=== PATIENT | male | born 1960 | race Caucasian/White ===

== ENCOUNTER 2017-04-29 14:01 | Emergency (ER) | payer MEDICAID, OTHER ==
[2017-04-29 14:23] VITALS: BP 148/77
[2017-04-29] MEDS ORDERED: Ketorolac 30 MG/ML SDV IM ONE (15:07)
[2017-04-29] MEDS ORDERED: predniSONE 20 MG Tab PO ONE (15:09)
[2017-04-29] MEDS ORDERED: Cyclobenzaprine 10 MG Tab PO ONE (15:24)
[2017-04-29 16:14] LABS: CHLORIDE,CL 104 mmol/L (98-107); SODIUM,NA 142 mmol/L (136-145)
[2017-04-29] MEDS ORDERED: Furosemide 40 MG Tab PO ONE (16:22)
--- NOTE | 2017-04-29 16:39 | EDM.PDOC ---
ED HPI GENERAL MEDICAL PROBLEM - General Chief Complaint: Headache Stated Complaint: neck and headache Time Seen by Provider: 04/29/17 14:25 Source of Information: Reports: Patient History Limitations: Reports: No Limitations - History of Present Illness INITIAL COMMENTS - FREE TEXT/NARRATIVE: Patient reports neck pain to the lower neck going up into the bottom of his head. This pain also goes down into the shoulder, and left arm. Denies chest pain. States neck pain is a 10/10. He states he took a friend's oxycodone today and that helped with the pain. He denies SOB, chest pain, abdominal pain , fever, diaphoresis, LOC. Does smoke 1 ppd. This has been going on for the last 2 days. Onset: Gradual Location: Reports: Neck Quality: Reports: Ache, Pressure Severity: Moderate Improves with: Reports: None Worsens with: Reports: Movement Associated Symptoms: Reports: No Other Symptoms Lower Head Pain Score (Numeric/FACES): 10 - Related Data Allergies Allergy/AdvReac Type Severity Reaction Status Date / Time codeine Allergy Nausea and Verified 04/29/17 14:25 Vomiting nickel Allergy Blisters Uncoded 10/02/14 10:44 Home Meds: Home Meds Albuterol [Proair HFA] 1 puff INH ASDIRECTED PRN 10/02/14 [History] Aspirin/Calcium Carbonate/Mag [Aspirin Buffered 325 mg Tab] 1 tab PO DAILY 10/02 [History] Bismuth Subsalicylate [Pepto-Bismol] 262 mg PO ASDIRECTED 10/02/14 [History] Lisinopril [Lisinopril] 1 tab PO DAILY 10/02/14 [History] Metoprolol Succinate [Toprol XL 50mg] 50 mg PO DAILY 10/02/14 [History] Mometasone/Formoterol [Dulera 200-5 MCG] 2 puff INH BID 10/02/14 [History] Nitroglycerin [Nitrostat] 1 tab SL ASDIRECTED PRN 10/02/14 [History] Ranitidine [Zantac] 150 mg PO DAILY 10/02/14 [History] atorvaSTATin [Lipitor] 20 mg PO BEDTIME 10/02/14 [History] traMADol HCl [Tramadol HCl] 1 tab PO 5XDAY PRN 10/02/14 [History] Past Medical History Cardiovascular History: Reports: Bypass, High Cholesterol, Hypertension - Past Surgical History Cardiovascular Surgical History: Reports: Valve Replacement Social & Family History - Tobacco Use Smoking Status *Q: Current Every Day Smoker Years of Tobacco use: 38 Packs/Tins Daily: 1 Second Hand Smoke Exposure: No - Alcohol Use Days Per Week of Alcohol Use: 0 - Recreational Drug Use Recreational Drug Use: No ED ROS GENERAL - Review of Systems Review Of Systems: See Below Constitutional: Reports: No Symptoms HEENT: Reports: No Symptoms Respiratory: Reports: No Symptoms Cardiovascular: Reports: No Symptoms Endocrine: Reports: No Symptoms GI/Abdominal: Reports: No Symptoms : Reports: No Symptoms Musculoskeletal: Reports: Neck Pain, Shoulder Pain, Arm Pain Skin: Reports: No Symptoms Neurological: Reports: Tingling (down left arm) Psychiatric: Reports: No Symptoms Hematologic/Lymphatic: Reports: No Symptoms Immunologic: Reports: No Symptoms - Physical Exam Exam: See Below Exam Limited By: No Limitations General Appearance: Alert, WD/WN, Moderate Distress Eye Exam: Bilateral Eye: EOMI, PERRL Ears: Normal TMs Throat/Mouth: Normal Inspection, Normal Lips, Normal Teeth, Normal Gums, Normal Oropharynx, Normal Voice, No Airway Compromise Head Exam: Atraumatic, Normocephalic Neck: Normal Inspection, Limited Range of Motion, Tender Lateral, Tender Midline Respiratory/Chest: No Respiratory Distress, Lungs Clear, Normal Breath Sounds, No Accessory Muscle Use, Chest Non-Tender Cardiovascular: Normal Peripheral Pulses, Regular Rate, Rhythm, No Edema, No Gallop, No JVD, No Murmur, No Rub GI/Abdominal: Normal Bowel Sounds, Soft, Non-Tender, No Organomegaly, No Distention, No Abnormal Bruit, No Mass Neuro Exam (Abbreviated): Alert, Oriented, CN II-XII Intact, Normal Cognition, Normal Gait, Normal Reflexes, No Motor/Sensory Deficits Back Exam: Normal Inspection, Full Range of Motion, NT Extremities: Normal Inspection, Normal Range of Motion, Non-Tender, No Pedal Edema, Normal Capillary Refill Psychiatric: Normal Affect, Normal Mood Skin Exam: Warm, Dry, Intact, Normal Color, No Rash Course - Vital Signs Last Recorded V/S: Last Vital Signs Temp 35.4 C 04/29/17 14:05 Pulse 72 04/29/17 14:05 Resp 18 04/29/17 14:05 BP 148/77 H 04/29/17 14:05 Pulse Ox 95 04/29/17 14:05 - Orders/Labs/Meds Orders: Active Orders 24 hr Category Date Time Status EKG Documentation Completion [RC] ROUTINE Care 04/29/17 15:07 Ordered Cervical Spine wo Cont [CT] Stat Exams 04/29/17 15:07 Ordered Chest 2V [CR] Stat Exams 04/29/17 15:07 Ordered Labs: Laboratory Tests 04/29/17 04/29/17 Range/Units 15:38 15:38 WBC 10.4 H (4.0-10.0) x10^3/uL RBC 5.27 (4.5-6.0) x10^6/uL Hgb 16.2 D (14.0-18.0) g/dL Hct 46.9 (40.0-52.0) % MCV 89.0 (78.0-93.0) fL MCH 30.7 (26.0-32.0) pg MCHC 34.5 (32.0-36.0) g/dL RDW Coeff of Rosalba 13.5 (10.0-15.0) % Plt Count 125 L (130-400) x10^3/uL Neut % (Auto) 69.8 (50.0-80.0) % Lymph % (Auto) 16.4 L (25.0-50.0) % [place] % (Auto) 10.6 (2.0-11.0) % Eos % (Auto) 3.0 (0.0-4.0) % Baso % (Auto) 0.2 (0.2-1.2) % Sodium 142 (136-145) mmol/L Potassium 3.7 (3.5-5.1) mmol/L Chloride 104 (98-107) mmol/L Carbon Dioxide 30 (21-32) mmol/L BUN 16 (7-18) mg/dL Creatinine 1.1 (0.70-1.30) mg/dL Est Cr Clr Drug Dosing TNP Estimated GFR (MDRD) > 60 Glucose 72 L (74-106) mg/dL Calcium 8.7 (8.5-10.1) mg/dL Corrected Calcium 8.78 (8.5-10.1) mg/dL Total Bilirubin 0.6 (0.2-1.0) mg/dL AST 27 (15-37) U/L ALT 48 (16-63) U/L Alkaline Phosphatase 99 (46-116) U/L Troponin I < 0.017 (<=0.056) ng/mL NT-Pro-B Natriuret Pep 574 H (<=125) pg/mL Total Protein 7.2 (6.4-8.2) g/dL Albumin 3.9 (3.4-5.0) g/dL Globulin 3.3 Albumin/Globulin Ratio 1.18 Meds: Medications Discontinued Medications Generic Name Dose Route Start Last Admin Trade Name Freq PRN Reason Stop Dose Admin Cyclobenzaprine HCl 10 mg 04/29/17 15:24 04/29/17 15:47 Flexeril PO 04/29/17 15:25 10 mg ONETIME ONE Administration Furosemide 40 mg 04/29/17 16:22 Lasix PO 04/29/17 16:23 ONETIME ONE Ketorolac Tromethamine 30 mg 04/29/17 15:07 04/29/17 15:32 Toradol IM 04/29/17 15:08 30 mg ONETIME ONE Administration Orphenadrine Citrate 60 mg 04/29/17 15:25 04/29/17 15:47 Norflex IM 04/29/17 15:26 60 mg ONETIME ONE Administration Prednisone 40 mg 04/30/17 15:09 Prednisone PO 04/30/17 15:10 ONETIME ONE Prednisone 40 mg 04/29/17 15:09 04/29/17 15:47 Prednisone PO 04/29/17 15:10 40 mg ONETIME ONE Administration - Re-Assessments/Exams Free Text/Narrative Re-Assessment/Exam: 04/29/17 16:40 Prescriptions given for medrol dose pack and flexeril. Departure - Departure Time of Disposition: 16:40 Disposition: Home, Self-Care 01 Condition: Good Clinical Impression: Neck pain, Headache - Discharge Information Instructions: Degenerative Disk Disease, Headache and Arthritis, Cervical Sprain, [id number] Referrals: PCP,Not In Area [Primary Care Provider] - Additional Instructions: Your labs, x-ray, CT scan, and ekg did not show an acute heart attack. Follow up with your regular provider for additional symptom management. You may use tylenol and ibuprofen for pain relief. Try alternating heat and ice, a topical analgesic like aspercreme, or lidocaine patches. Try to do some stretches as well. You may also want to try some chiropractic or massage therapy. Physical therapy may also be an option. Please call us with any questions or concerns. - Problem List & Annotations (1) Headache SNOMED Code(s): 13931727 Code(s): R51 - HEADACHE Status: Acute Priority: Low Current Visit: Yes Qualifiers: Headache type: unspecified Headache chronicity pattern: acute headache Intractability: not intractable Qualified Code(s): R51 - Headache (2) Neck pain SNOMED Code(s): 83476211 Code(s): M54.2 - CERVICALGIA Status: Acute Priority: Low Current Visit : Yes - Problem List Review Problem List Initiated/Reviewed/Updated: Yes - My Orders Last 24 Hours: My Active Orders 04/29/17 15:07 EKG Documentation Completion [RC] ROUTINE Cervical Spine wo Cont [CT] Stat Chest 2V [CR] Stat - Assessment/Plan Last 24 Hours: My Active Orders 04/29/17 15:07 EKG Documentation Completion [RC] ROUTINE Cervical Spine wo Cont [CT] Stat Chest 2V [CR] Stat Assessment:: neck pain headache Plan: Your labs, x-ray, CT scan, and ekg did not show an acute heart attack. Follow up with your regular provider for additional symptom management. You may use tylenol and ibuprofen for pain relief. Try alternating heat and ice, a topical analgesic like aspercreme, or lidocaine patches. Try to do some stretches as well. You may also want to try some chiropractic or massage therapy. Physical therapy may also be an option. Please call us with any questions or concerns.
[2017-04-30] MEDS ORDERED: predniSONE 20 MG Tab PO ONE (15:09)
== END 2017-04-29 16:49 | disposition home or self-care (01) ==
LOC: VM.ED 14:01
DX: M54.2 Cervicalgia (principal); R51 Headache; I10 Essential (primary) hypertension; E78.00 Pure hypercholesterolemia, unspecified; F17.210 Nicotine dependence, cigarettes, uncomplicated; Z88.5 Allergy status to narcotic agent; Z79.82 Long term (current) use of aspirin; Z79.899 Other long term (current) drug therapy
CPT/HCPCS: 36415; 71046; 72125; 80053; 83880; 84484; 85025; 96372; 99284; A9270; J1885; J2360

== ENCOUNTER 2018-01-21 03:05 | Emergency (ER) | payer MEDICAID ==
[2018-01-21] MEDS: Sodium Chloride 0.9% 1,000 ML IV ONE (03:45)
[2018-01-21] MEDS: Ondansetron 4 MG/2 ML SDV IVPUSH ONE (04:40)
[2018-01-21 04:43] LABS: CHLORIDE,CL 101 mmol/L (98-107); SODIUM,NA 136 mmol/L (136-145)
[2018-01-21 04:44] LABS: ANION GAP 13.9 mmol/L (10-20)
[2018-01-21] MEDS: HYDROmorphone 1 MG/ML Syringe IVPUSH ONE ×2 (04:44→06:55)
[2018-01-21] MEDS: Iopamidol 612 MG/ML 100 ML Bottle IVPUSH ONE (05:10)
--- NOTE | 2018-01-21 06:43 | EDM.PDOC ---
ED HPI GENERAL MEDICAL PROBLEM - General Chief Complaint: Flank Pain Stated Complaint: Right flank pain Time Seen by Provider: 01/21/18 03:33 Source of Information: Reports: Patient, EMS History Limitations: Reports: No Limitations - History of Present Illness INITIAL COMMENTS - FREE TEXT/NARRATIVE: Patient presents to emergency room this morning with complaints of right-sided flank pain. He states that this is been ongoing for the last couple days. He denies chest pain, shortness of breath, headache, loss of consciousness, blood in his urine or his stool is also denied. He is having regular bowel and bladder movements. He does state that the pain he is having is largely in the right side of his flank but does radiate into the right side of his abdomen. He is not having any face, jaw, neck or arm pain. Onset: Gradual Onset Date: 01/19/18 Duration: Getting Worse Location: Reports: Abdomen, Back Quality: Reports: Sharp Improves with: Reports: None Worsens with: Reports: None Treatments PICKER: Reports: IV/IO, Other (see below) Other Treatments PICKER: Dilaudid, Zofran Right flank Pain Score (Numeric/FACES): 7 - Related Data Allergies Allergy/AdvReac Type Severity Reaction Status Date / Time nickel Allergy Blisters Verified 01/21/18 03:26 codeine AdvReac Nausea and Verified 01/21/18 03:26 Vomiting Home Meds: Home Meds Albuterol [Proair HFA] 1 puff INH ASDIRECTED PRN 10/02/14 [History] Aspirin/Calcium Carbonate/Mag [Aspirin Buffered 325 mg Tab] 1 tab PO DAILY 10/02 [History] Bismuth Subsalicylate [Pepto-Bismol] 262 mg PO ASDIRECTED 10/02/14 [History] Lisinopril 1 tab PO DAILY 10/02/14 [History] Metoprolol Succinate [Toprol XL 50mg] 50 mg PO DAILY 10/02/14 [History] Mometasone/Formoterol [Dulera 200-5 MCG] 2 puff INH BID 10/02/14 [History] Nitroglycerin [Nitrostat] 1 tab SL ASDIRECTED PRN 10/02/14 [History] atorvaSTATin [Lipitor] 20 mg PO BEDTIME 10/02/14 [History] traMADol HCl [Tramadol HCl] 1 tab PO 5XDAY PRN 10/02/14 [History] Famotidine [Pepcid] 20 mg PO DAILY 01/21/18 [History] Past Medical History Cardiovascular History: Reports: Bypass, High Cholesterol, Hypertension - Past Surgical History Cardiovascular Surgical History: Reports: Valve Replacement ED ROS GENERAL - Review of Systems Review Of Systems: See Below Constitutional: Reports: No Symptoms HEENT: Reports: No Symptoms Respiratory: Reports: No Symptoms Cardiovascular: Reports: No Symptoms Endocrine: Reports: No Symptoms GI/Abdominal: Reports: Abdominal Pain : Reports: No Symptoms Musculoskeletal: Reports: Back Pain Skin: Reports: No Symptoms Neurological: Reports: No Symptoms Psychiatric: Reports: No Symptoms Hematologic/Lymphatic: Reports: No Symptoms Immunologic: Reports: No Symptoms ED EXAM,LOWER BACK PAIN/INJURY - Physical Exam Exam: See Below Exam Limited By: No Limitations General Appearance: Alert, WD/WN, Mild Distress Eye Exam: Bilateral Eye: EOMI, PERRL Ears: Normal TMs Nose: Normal Inspection, Normal Mucosa, No Blood Throat/Mouth: Normal Inspection, Normal Lips, Normal Gums, Normal Oropharynx, Normal Voice, No Airway Compromise. No: Normal Teeth (teeth removed) Head: Atraumatic, Normocephalic Neck: Normal Inspection, Supple, Non-Tender, Full Range of Motion Respiratory/Chest: No Respiratory Distress, Lungs Clear, Normal Breath Sounds, No Accessory Muscle Use, Chest Non-Tender Cardiovascular: Normal Peripheral Pulses, Regular Rate, Rhythm, No Edema, No Gallop, No JVD, No Rub, Systolic Murmur (patient has porcine valve replacement) GI/Abdominal: Normal Bowel Sounds, Soft, Non-Tender, No Organomegaly, No Distention, No Abnormal Bruit, No Mass Back Exam: Full Range of Motion, CVA Tenderness (R) Extremities: Normal Inspection, Normal Range of Motion, Non-Tender, No Pedal Edema, Normal Capillary Refill Neurological: Alert, Normal Mood/Affect, Normal Dorsiflexion, CN II-XII Intact, Normal Plantar Flexion, Normal Gait, Normal Reflexes, No Motor/Sensory Deficits , Oriented x 3 Psychiatric: Normal Affect, Normal Mood Skin Exam: Warm, Dry, Intact, Normal Color, No Rash Lymphatic: No Adenopathy Course - Vital Signs Last Recorded V/S: Last Vital Signs Temp 37.1 C 01/21/18 03:10 Pulse 85 01/21/18 06:47 Resp 16 01/21/18 06:47 BP 150/67 H 01/21/18 06:47 Pulse Ox 97 01/21/18 06:47 - Orders/Labs/Meds Orders: Active Orders 24 hr Category Date Time Status EKG 12 Lead [EKG Documentation Completion] [RC] STAT Care 01/21/18 05:01 Active Abdomen Pelvis w Cont [CT] Stat Exams 01/21/18 03:37 Taken CBC W/O DIFF,HEMOGRAM [HEME] Q3D Lab 01/22/18 07:00 Ordered CBC W/O DIFF,HEMOGRAM [HEME] Q3D Lab 01/25/18 07:00 Ordered CBC W/O DIFF,HEMOGRAM [HEME] Q3D Lab 01/28/18 07:00 Ordered CBC W/O DIFF,HEMOGRAM [HEME] Q3D Lab 01/31/18 07:00 Ordered CBC W/O DIFF,HEMOGRAM [HEME] Q3D Lab 02/03/18 07:00 Ordered CBC W/O DIFF,HEMOGRAM [HEME] Q3D Lab 02/06/18 07:00 Ordered CBC W/O DIFF,HEMOGRAM [HEME] Q3D Lab 02/09/18 07:00 Ordered CULTURE BLOOD [BC] Stat Lab 01/21/18 03:52 Received CULTURE BLOOD [BC] Stat Lab 01/21/18 04:05 Results Heparin Sodium/0.45% NaCl [Heparin 25,000 Units in 1/2 Med 01/21/18 07:45 Ordered NS 500 ML] 25,000 units in 500 ml IV TITRATE Blood Culture x2 Reflex Set [OM.PC] Stat Oth 01/21/18 03:37 Ordered Medication Orders Heparin Sodium/Sodium Chloride (Heparin 25,000 Units In 1/2 Ns 500 Ml) 25,000 units in 500 mls @ 26 mls/hr IV TITRATE DEMETRI; Protocol Last Admin: 01/21/18 07:50 Dose: 1,300 units/hr, 26 mls/hr Labs: Laboratory Tests 01/21/18 01/21/18 01/21/18 Range/Units 03:52 03:52 03:52 WBC 16.0 H (4.0-10.0) x10^3/uL RBC 4.33 L (4.5-6.0) x10^6/uL Hgb 13.5 L D (14.0-18.0) g/dL Hct 37.6 L (40.0-52.0) % MCV 86.8 (78.0-93.0) fL MCH 31.2 (26.0-32.0) pg MCHC 35.9 (32.0-36.0) g/dL RDW Coeff of Rosalba 11.9 (10.0-15.0) % Plt Count 126 L (130-400) x10^3/uL Neut % (Auto) 85.0 H (50.0-80.0) % Lymph % (Auto) 5.6 L (25.0-50.0) % [place] % (Auto) 9.2 (2.0-11.0) % Eos % (Auto) 0.0 (0.0-4.0) % Baso % (Auto) 0.2 (0.2-1.2) % Sodium 136 (136-145) mmol/L Potassium 3.9 (3.5-5.1) mmol/L Chloride 101 (98-107) mmol/L Carbon Dioxide 25 (21-32) mmol/L Anion Gap 13.9 (10-20) mmol/L BUN 10 (7-18) mg/dL Creatinine 0.9 (0.70-1.30) mg/dL Est Cr Clr Drug Dosing 86.71 mL/min Estimated GFR (MDRD) > 60 Glucose 137 H (74-106) mg/dL Lactic Acid 0.6 (0.4-2.0) mmol/L Calcium 8.2 L (8.5-10.1) mg/dL Corrected Calcium 9.24 (8.5-10.1) mg/dL Magnesium 1.3 L (1.8-2.4) mg/dL Total Bilirubin 0.9 (0.2-1.0) mg/dL AST 22 (15-37) U/L ALT 19 (16-63) U/L Alkaline Phosphatase 79 (46-116) U/L Troponin I 0.296 H* (<=0.056) ng/mL C-Reactive Protein 10.9 H (<=0.9) mg/dL NT-Pro-B Natriuret Pep 2288 H (<=125) pg/mL Total Protein 6.4 (6.4-8.2) g/dL Albumin 2.7 L (3.4-5.0) g/dL Globulin 3.7 Albumin/Globulin Ratio 0.73 Urine Color (YELLOW) Urine Appearance (CLEAR) Urine pH (5.0-8.0) Ur Specific [place] Urine Protein (NEGATIVE) mg/dL Urine Glucose (UA) (NEGATIVE) mg/dL Urine Ketones (NEGATIVE) mg/dL Urine Occult Blood (NEGATIVE) Urine Nitrite (NEGATIVE) Urine Bilirubin (NEGATIVE) Urine Urobilinogen (0.2) EU/dL Ur Leukocyte Esterase (NEGATIVE) Urine RBC (NOT SEEN) /HPF Urine WBC (NOT SEEN) /HPF Ur Squamous Epith Cells (NEGATIVE) /HPF Urine Bacteria (NEGATIVE) /HPF Urine Mucus (NEGATIVE) /LPF Ethyl Alcohol (0-3) mg/dL 01/21/18 01/21/18 Range/Units 03:52 04:40 WBC (4.0-10.0) x10^3/uL RBC (4.5-6.0) x10^6/uL Hgb (14.0-18.0) g/dL Hct (40.0-52.0) % MCV (78.0-93.0) fL MCH (26.0-32.0) pg MCHC (32.0-36.0) g/dL RDW Coeff of Rosalba (10.0-15.0) % Plt Count (130-400) x10^3/uL Neut % (Auto) (50.0-80.0) % Lymph % (Auto) (25.0-50.0) % [place] % (Auto) (2.0-11.0) % Eos % (Auto) (0.0-4.0) % Baso % (Auto) (0.2-1.2) % Sodium (136-145) mmol/L Potassium (3.5-5.1) mmol/L Chloride (98-107) mmol/L Carbon Dioxide (21-32) mmol/L Anion Gap (10-20) mmol/L BUN (7-18) mg/dL Creatinine (0.70-1.30) mg/dL Est Cr Clr Drug Dosing mL/min Estimated GFR (MDRD) Glucose (74-106) mg/dL Lactic Acid (0.4-2.0) mmol/L Calcium (8.5-10.1) mg/dL Corrected Calcium (8.5-10.1) mg/dL Magnesium (1.8-2.4) mg/dL Total Bilirubin (0.2-1.0) mg/dL AST (15-37) U/L ALT (16-63) U/L Alkaline Phosphatase (46-116) U/L Troponin I (<=0.056) ng/mL C-Reactive Protein (<=0.9) mg/dL NT-Pro-B Natriuret Pep (<=125) pg/mL Total Protein (6.4-8.2) g/dL Albumin (3.4-5.0) g/dL Globulin Albumin/Globulin Ratio Urine Color Yellow (YELLOW) Urine Appearance Slightly cloudy H (CLEAR) Urine pH 6.0 (5.0-8.0) Ur Specific [place] 1.025 Urine Protein Trace H (NEGATIVE) mg/dL Urine Glucose (UA) Negative (NEGATIVE) mg/dL Urine Ketones 80 H (NEGATIVE) mg/dL Urine Occult Blood Negative (NEGATIVE) Urine Nitrite Negative (NEGATIVE) Urine Bilirubin Small H (NEGATIVE) Urine Urobilinogen 0.2 (0.2) EU/dL Ur Leukocyte Esterase Negative (NEGATIVE) Urine RBC 0-5 (NOT SEEN) /HPF Urine WBC 0-5 (NOT SEEN) /HPF Ur Squamous Epith Cells Not seen (NEGATIVE) /HPF Urine Bacteria Rare (NEGATIVE) /HPF Urine Mucus Moderate H (NEGATIVE) /LPF Ethyl Alcohol < 3 (0-3) mg/dL Meds: Medications Generic Name Dose Route Start Last Admin Trade Name Freq PRN Reason Stop Dose Admin Heparin Sodium/Sodium Chloride 25,000 units in 500 mls @ 26 mls/hr 01/21/18 07 :45 01/21/18 07:50 Heparin 25,000 Units In 1/2 Ns 500 Ml IV 1,300 units/hr TITRATE DEMETRI 26 mls/hr Administration Protocol 1,300 UNITS/HR Discontinued Medications Generic Name Dose Route Start Last Admin Trade Name Freq PRN Reason Stop Dose Admin Heparin Sodium (Porcine) 5,000 units 01/21/18 07:26 01/21/18 07:50 Heparin Sodium IVPUSH 01/21/18 07:27 5,000 units ONETIME ONE Administration Hydromorphone HCl 1 mg 01/21/18 03:42 01/21/18 04:44 Dilaudid IVPUSH 01/21/18 03:43 1 mg ONETIME ONE Administration Hydromorphone HCl 1 mg 01/21/18 06:50 01/21/18 06:55 Dilaudid IVPUSH 01/21/18 06:51 1 mg ONETIME ONE Administration Sodium Chloride 1,000 mls @ 999 mls/hr 01/21/18 03:43 01/21/18 03:45 Normal Saline IV 01/21/18 04:43 999 mls/hr ONETIME ONE Administration Heparin Sodium/Sodium Chloride 25,000 units in 500 mls @ 27.27 mls/hr 07:30 Heparin 25,000 Units In 1/2 Ns 500 Ml IV TITRATE DEMETRI Protocol 18 UNITS/KG/HR Iopamidol 100 ml 01/21/18 04:47 01/21/18 05:10 Isovue-300 (61%) IVPUSH 01/21/18 04:48 100 ml ONETIME ONE Administration Ondansetron HCl 4 mg 01/21/18 03:42 01/21/18 04:40 Zofran IVPUSH 01/21/18 03:43 4 mg ONETIME ONE Administration - Radiology Interpretation Free Text/Narrative:: Review of CT shows probable right renal infarction, 3.2x2.9 cm renal cyst, and chronic diverticulosis Departure - Departure Time of Disposition: 08:42 Disposition: DC/Tfer to Acute Hospital 02 Condition: Fair Clinical Impression: Renal infarction - Discharge Information *PRESCRIPTION DRUG MONITORING PROGRAM REVIEWED*: No *COPY OF PRESCRIPTION DRUG MONITORING REPORT IN PATIENT FLAKO: No Referrals: PCP,Unobtain [Primary Care Provider] - Forms: ED Department Discharge, Interfacility Transfer [facility] ED Communication - ED Communication Date/Time Date: 01/21/18 Time Called: 07:00 - Discussed Case With (1) Discussed Case With (1): Admitting Provider (Report called to Dr. Portillo, hospitalist at [facility]. We did decide to start heparin gtt with initial bolus.) - Problem List & Annotations (1) Renal infarction SNOMED Code(s): 45810571 Code(s): N28.0 - ISCHEMIA AND INFARCTION OF KIDNEY Status: Acute Priority : Medium Current Visit: Yes - Problem List Review Problem List Initiated/Reviewed/Updated: Yes - My Orders Last 24 Hours: My Active Orders 01/21/18 03:37 Abdomen Pelvis w Cont [CT] Stat Blood Culture x2 Reflex Set [OM.PC] Stat 01/21/18 03:52 CULTURE BLOOD [BC] Stat 01/21/18 04:05 CULTURE BLOOD [BC] Stat 01/21/18 05:01 EKG 12 Lead [EKG Documentation Completion] [RC] STAT 01/21/18 07:45 Heparin Sodium/0.45% NaCl [Heparin 25,000 Units in 1/2 NS 500 ML] 25,000 units in 500 ml IV TITRATE 01/22/18 07:00 CBC W/O DIFF,HEMOGRAM [HEME] Q3D 01/25/18 07:00 CBC W/O DIFF,HEMOGRAM [HEME] Q3D 01/28/18 07:00 CBC W/O DIFF,HEMOGRAM [HEME] Q3D 01/31/18 07:00 CBC W/O DIFF,HEMOGRAM [HEME] Q3D 02/03/18 07:00 CBC W/O DIFF,HEMOGRAM [HEME] Q3D 02/06/18 07:00 CBC W/O DIFF,HEMOGRAM [HEME] Q3D 02/09/18 07:00 CBC W/O DIFF,HEMOGRAM [HEME] Q3D - Assessment/Plan Last 24 Hours: My Active Orders 01/21/18 03:37 Abdomen Pelvis w Cont [CT] Stat Blood Culture x2 Reflex Set [OM.PC] Stat 01/21/18 03:52 CULTURE BLOOD [BC] Stat 01/21/18 04:05 CULTURE BLOOD [BC] Stat 01/21/18 05:01 EKG 12 Lead [EKG Documentation Completion] [RC] STAT 01/21/18 07:45 Heparin Sodium/0.45% NaCl [Heparin 25,000 Units in 1/2 NS 500 ML] 25,000 units in 500 ml IV TITRATE 01/22/18 07:00 CBC W/O DIFF,HEMOGRAM [HEME] Q3D 01/25/18 07:00 CBC W/O DIFF,HEMOGRAM [HEME] Q3D 01/28/18 07:00 CBC W/O DIFF,HEMOGRAM [HEME] Q3D 01/31/18 07:00 CBC W/O DIFF,HEMOGRAM [HEME] Q3D 02/03/18 07:00 CBC W/O DIFF,HEMOGRAM [HEME] Q3D 02/06/18 07:00 CBC W/O DIFF,HEMOGRAM [HEME] Q3D 02/09/18 07:00 CBC W/O DIFF,HEMOGRAM [HEME] Q3D
[2018-01-21 06:52] VITALS: BP 150/67
[2018-01-21] MEDS: Heparin Sodium 5,000 Units/ML Vial IVPUSH ONE (07:50)
[2018-01-21] MEDS: Heparin Sodium/0.45% NaCl 25,000 UNITS/500 ML BAG IV SCH ×2 (07:50)
== END 2018-01-21 08:45 | disposition short-term general hospital (02) ==
LOC: VM.ED 03:05
DX: N28.0 Ischemia and infarction of kidney (principal); I10 Essential (primary) hypertension; Z88.8 Allergy status to other drugs, medicaments and biological substances; Z88.5 Allergy status to narcotic agent; Z79.899 Other long term (current) drug therapy
CPT/HCPCS: 36415; 74177; 80053; 81001; 83605; 83735; 83880; 84484; 85025; 86140; 87040; 93005; 99285; G0480; J1170; J1644; J2405; J7030; Q9967; 87077